=== PATIENT | male | born 1970 | race Caucasian/White ===

== ENCOUNTER → 2021-08-03 | Day surgery (SDC) | payer OTHER ==
[~2021-08-03] VITALS: Ht 175.3 cm; Wt 93.4 kg
[~2021-08-03] MED LIST: FLONASE ALLER15.8 ML; PRILOSEC20 MG PO; PRINIVIL20 MG PO; SINGULAIR10 MG PO; ZYRTEC10 M3 PO
[2021-08-03 08:26] LABS: HCT 45.8 % (42.0-52.0); HGB 15.4 g/dl (13.2-18.0); MCH 29.2 pg (25.0-31.0); MCHC 33.6 g/dL (32.0-36.0); MCV 86.9 fL (78.0-100.0); MPV 10.5 fL (6.0-9.5); RBC 5.27 M/uL (4.70-6.00); RDW 12.6 % (11.5-14.0); WBC 12.8 K/uL (4.0-10.5)
[2021-08-03 09:51] LABS: ALBUMIN 3.8 g/dL (3.4-5.0); BILIRUBIN - TOTAL 0.7 mg/dL (0.2-1.0); BUN/CREAT RATIO (CALC) 9.2 RATIO; CREATININE 1.19 mg/dL (0.67-1.17); GLOBULIN (CALCULATION) 3.6 g/dL; POTASSIUM 4.1 mmol/L (3.5-5.1); TOTAL PROTEIN 7.4 g/dL (6.4-8.2)
== END | disposition home or self-care (01) ==
LOC: FAS 07:23
PROVIDERS: Surgery
DX: Z12.11 Encounter for screening for malignant neoplasm of colon (principal); D12.2 Benign neoplasm of ascending colon; K21.9 Gastro-esophageal reflux disease without esophagitis; K29.50 Unspecified chronic gastritis without bleeding; B96.81 Helicobacter pylori [H. pylori] as the cause of diseases classified elsewhere; I10 Essential (primary) hypertension; Z79.899 Other long term (current) drug therapy
CPT/HCPCS: 36415; 80053; J2250; J2704; J7120